=== PATIENT | female | born 1960 | race Caucasian/White ===

== ENCOUNTER → 2021-05-07 08:16 | Outpatient (BNVA) | payer OTHER, SELFPAY | PROVIDERS: PCP Nurse Practitioner; Visit Provider Nurse Practitioner Family ==

== ENCOUNTER 2021-05-24 16:30 | Outpatient (REF) | payer OTHER, SELFPAY ==
--- NOTE | ~2021-05-24 | XR_ITS ---
EXAMINATION: BILATERAL KNEE X-RAY CLINICAL INFORMATION: Pain COMPARISON: None TECHNIQUE: 3 views each knee FINDINGS: Left: Bone alignment is normal. No fracture or dislocation is seen. There is mild arthritis at the patellofemoral and femoral tibial joints. There is a small osteophyte at the quadriceps tendon insertion to the patella. There is a small joint effusion. Right: There is mild valgus angulation at the knee joint. Bone alignment is otherwise normal. No fracture or dislocation is seen. There is moderate arthritis at the femoral tibial and patellofemoral joints with joint space narrowing and osteophyte formation. There is a small joint effusion. XR/XR knee LT 3V IMPRESSION: Bilateral arthritis, right greater than left.
--- NOTE | ~2021-05-24 | XR_ITS ---
EXAMINATION: BILATERAL KNEE X-RAY CLINICAL INFORMATION: Pain COMPARISON: None TECHNIQUE: 3 views each knee FINDINGS: Left: Bone alignment is normal. No fracture or dislocation is seen. There is mild arthritis at the patellofemoral and femoral tibial joints. There is a small osteophyte at the quadriceps tendon insertion to the patella. There is a small joint effusion. Right: There is mild valgus angulation at the knee joint. Bone alignment is otherwise normal. No fracture or dislocation is seen. There is moderate arthritis at the femoral tibial and patellofemoral joints with joint space narrowing and osteophyte formation. There is a small joint effusion. XR/XR knee RT 3V IMPRESSION: Bilateral arthritis, right greater than left.
== END 2021-05-24 16:31 | disposition home or self-care (01) ==
LOC: HO.XRAY 16:30
PROVIDERS: PCP Nurse Practitioner; Visit Provider Nurse Practitioner Family
DX: M25.561 Pain in right knee (principal); M25.562 Pain in left knee; M19.90 Unspecified osteoarthritis, unspecified site; M79.7 Fibromyalgia; F11.20 Opioid dependence, uncomplicated
CPT/HCPCS: 73562